=== PATIENT | male | born 1940 | race Two or more races ===

== ENCOUNTER 2021-08-12 09:04 | Day surgery (SDC) | payer OTHER ==
[~2021-08-12 09:04] MED LIST: CLONAZEPAM0.5 MG PO; ZYRTEC10 M3 PO
[2021-08-12] MEDS ORDERED: NEURONTIN600 M1 PO (12:20)
[2021-08-12] MEDS ORDERED: PERCOCET 5-3251 EACH PO (12:20)
[2021-08-12] MEDS ORDERED: POLY119PG PO (12:20)
== END 2021-08-12 16:50 | disposition home or self-care (01) ==
LOC: CIR.AMB 09:04
PROVIDERS: ATTEND Surgery
DX: K40.90 Unilateral inguinal hernia, without obstruction or gangrene, not specified as recurrent (principal); Z91.018 Allergy to other foods; G43.909 Migraine, unspecified, not intractable, without status migrainosus; K21.9 Gastro-esophageal reflux disease without esophagitis; Z20.822 Contact with and (suspected) exposure to COVID-19; D17.6 Benign lipomatous neoplasm of spermatic cord
CPT/HCPCS: 49650; C1781

== ENCOUNTER → 2023-10-20 | Emergency (ER) | payer OTHER ==
[~2023-10-20] VITALS: Ht 170.2 cm; Wt 66.7 kg
[~2023-10-20] MED LIST changes: +MONTELUKAST SOD10 MG PO; +NEURONTIN600 M1 PO; +PERCOCET 5-3251 EACH PO; +POLY119PG PO
== END | disposition left against medical advice (07) ==
LOC: ER 20:11
DX: Z53.21 Procedure and treatment not carried out due to patient leaving prior to being seen by health care provider (principal)